=== PATIENT | female | born 1990 | race Caucasian/White ===

== ENCOUNTER 2017-07-30 18:40 | Inpatient (IN) | payer BC ==
[2017-07-30] VITALS (14 sets, daily range): BP systolic 107–129; BP diastolic 55–86; PULSE 78–109; TEMP 97.5–97.6
[~2017-07-30] VITALS: Ht 167.6 cm; Wt 88.6 kg
[2017-07-30] MEDS ORDERED: PRENATAL MVI (19:02)
[2017-07-30 21:19] LABS: BASO # 0.1 (0.0-0.2); BASO % 0.4 % (0.0-2.0); EOS # 0.2 (0.0-0.7); EOS % 0.9 % (0-4.0); GRAN # 14.4 (1.4-6.5); GRAN % 73.5 % (42.2-75.2); HEMATOCRIT 39.5 % (37.0-47.0); HEMOGLOBIN 13.8 g/dl (12.5-16.0); LYMPH # 3.3 (1.2-3.4); MEAN CELL VOLUME 94 fl (80.0-100.0); MEAN CORPUSCULAR HEMOGLOBIN 33 pg (27.0-31.0); MEAN CORPUSCULAR HGB CONC 35 g/dl (33.0-37.0); MEAN PLATELET VOLUME 12.9 fl (7.4-10.4); MONO # 1.4 (0.1-0.6); MONO % 7.1 % (1.7-9.3); PLATELET COUNT 213 K/mm3 (130-400); RED BLOOD COUNT 4.21 M/mm3 (4.10-5.30); REDCELL DISTRIBUTION WIDTH-CV 13.2 % (11.5-14.5)
[2017-07-31] VITALS (28 sets, daily range): BP systolic 104–143; BP diastolic 52–78; PULSE 68–103; TEMP 97.8–98.6
[2017-08-01 07:05] VITALS: BP 113/72; PULSE 94; TEMP 97.6
[2017-08-01] MEDS ORDERED: IBU800 M1 PO (10:18)
[2017-08-01 16:35] VITALS: BP 104/66; PULSE 95; TEMP 98.2
[2017-08-01 19:00] VITALS: BP 114/74; PULSE 100; TEMP 97.6
[2017-08-02 07:30] VITALS: BP 111/59; PULSE 77
[2017-08-02] MEDS ORDERED: PERCOCET 325 MG1 TA2 PO (08:41)
== END 2017-08-02 11:55 | disposition home or self-care (01) | DRG 775 ==
LOC: LDRO 18:40 → OB 18:41 → LDR 18:41 → OB 07-31 08:15
PROVIDERS: Obstetrics & Gynecology
PROC: 10D07Z6 Extraction of Products of Conception, Vacuum, Via Natural or Artificial Opening (ICD-10-PCS; principal; 2017-07-31)
PROC: 0KQM0ZZ Repair Perineum Muscle, Open Approach (ICD-10-PCS; 2017-07-31)
DX: O48.0 Post-term pregnancy (principal); O75.81 Maternal exhaustion complicating labor and delivery; O70.1 Second degree perineal laceration during delivery; Z3A.40 40 weeks gestation of pregnancy; Z37.0 Single live birth
CPT/HCPCS: J2590; J7120

== ENCOUNTER 2021-11-13 23:00 | Inpatient (IN) | payer OTHER ==
[~2021-11-13] VITALS: Ht 167.6 cm; Wt 96.8 kg
[~2021-11-13 23:00] MED LIST: ADVIL200 MG PO; IBU800 M1 PO; MOTRIN 600600 MG/TAB PO; PERCOCET 325 MG1 TA2 PO; PRENATAL MVI; QUASENSE 30 MCG1 TAB PO; VITAMIN C500 MG PO
--- NOTE | 2021-11-13 23:00 | NUR ---
2300 - PATIENT AMBULATORY TO R5 ACCOMPANIED BY SPOUSE, JOE. PATIENT ORIENTED TO ROOM. PATIENT CHANGES INTO GOWN. 2315 - PATIENT STATES HER WATER BROKE AT 2130 AND CONTRACTIONS HAVE BEEN EVERY 6 MINUTES. PATIENT STATES SHE NOTED CLEAR FLUID LEAKING. PATIENT DENIES BLOODY SHOW AND REPORTS GOOD MOVEMENT. PLAN OF CARE REVIEWED. QUESTIONS ANSWERED. 2320 - PATIENT PLACED ON MONITOR. VSS. 232 - SVE PERFORMED. 3. AMNIOTRACE POSITIVE. PLAN OF CARE REVIEWED AND PATIENT AGREEABLE TO PLAN. ORAL HYDRATION PROVIDED.
[2021-11-13] MEDS ORDERED: PRENATAL TABLET PO (23:20)
[2021-11-13] MEDS ORDERED: ZYRTEC 10MG10 MG PO (23:20)
[2021-11-13] MEDS ORDERED: ASPIRIN 81M81 MG/TA2 PO (23:21)
[2021-11-13] MEDS ORDERED: COLACE 100100 MG/CAP PO (23:22)
[2021-11-13 23:30] VITALS: BP 122/97; PULSE 100; TEMP 97.8
--- NOTE | 2021-11-13 23:45 | NUR ---
2345 - PATIENT OFF MONITOR TO AMBULATE IN HALLWAY. CARE ONGOING.
[2021-11-14] VITALS (34 sets, daily range): BP systolic 91–137; BP diastolic 51–86; PULSE 67–112; TEMP 97.3–98.2
--- NOTE | 2021-11-14 | NUR ---
PATIENT OFF MONITOR FOR AMBULATION UNTIL 0035. CARE ONGOING.
[2021-11-14 01:21] LABS: HEMATOCRIT 39.8 % (37.0-47.0); HEMOGLOBIN 14.1 g/dl (12.5-16.0); MEAN CELL VOLUME 92 fl (80.0-100.0); MEAN CORPUSCULAR HEMOGLOBIN 33 pg (27-31); MEAN CORPUSCULAR HGB CONC 35 g/dl (33.0-37.0); MEAN PLATELET VOLUME 12.8 fl (7.4-10.4); PLATELET COUNT 222 K/mm3 (130-400); RED BLOOD COUNT 4.31 M/mm3 (4.10-5.30); REDCELL DISTRIBUTION WIDTH-CV 13.2 % (11.5-14.5)
--- NOTE | 2021-11-14 01:30 | NUR ---
0130 - TOCO TRACING INDESCERNIBLE DUE TO MATERNAL POSITION. TOCO ADJUSTED. CARE ONGOING.
[2021-11-14 01:34] LABS: BAND 11 % (0-10); EOSINOPHIL 2 % (0-4); LYMPHOCYTE 18 % (20.0-51.0); NEUTROPHILS 61 % (42.0-75.2); PLATELET ESTIMATE NORMAL (NORMAL)
--- NOTE | 2021-11-14 02:00 | NUR ---
0200 - PATIENT AMBULATING HALLWAY. CARE ONGOING.
--- NOTE | 2021-11-14 02:30 | NUR ---
PATIENT AMBULATING ON UNIT UNTIL 0230. PATIENT POSITIONED ON BIRTHING BALL UPON RETURN TO ROOM. TOCO TRACING DIFFICULT TO INTERPRET DUE TO MATERNAL POSITION. CARE ONGOING.
--- NOTE | 2021-11-14 03:30 | NUR ---
0330 - PATIENT AMBULATING HALLWAY.
--- NOTE | 2021-11-14 04:00 | NUR ---
0340 - EDOUARD HERNANDEZ AT BEDSIDE. PATIENT POSITIONED SITTING EDGE OF BED. 0350 - TEST DOSE GIVEN BY LITHOGRAPHIC STRIPPER. EFM TRACING POOR DUE TO MATERNAL POSITION FOR PROCEDURE. EFM ADJUSTED. CARE ONGOING.
--- NOTE | 2021-11-14 04:45 | NUR ---
TOCO TRACING DIFFICULT TO INTERPRET. TOCO ADJUSTED. CARE ONGOING.
--- NOTE | 2021-11-14 05:15 | NUR ---
TOCO TRACING INDESCERNIBLE. TOCO ADJUSTED. CARE ONGOING.
--- NOTE | 2021-11-14 05:30 | NUR ---
TOCO TRACING POORLY DUE TO MATERNAL POSITION. TOCO ADJUSTED. CARE ONGOING.
--- NOTE | 2021-11-14 08:40 | NUR ---
0735 SVE by this RN /+1. 0736 Dr. Hopper called with update. 0750 Dr. Hopper in patient's room. Pt starts pushing with contractions. This Rn at bedside coaching patient through pushing. 0820 Dr. Hopper, Carmina and this RN in room for delivery. 0837 Spontaneous vaginal delivery of viable female . Infant bulb suctioned and stimulated. Cord clamped by Dr Hopper and cut by FOB. to mother's chest. Ravinder Hoyt takes over care of . 0840 Spontaneous delivery of placenta. Pitocin bolus started per protocol. 2nd degree perineal laceration repaired by Dr Hopper. Fundal massage done. Firm/midline. Scant amt of bleeding noted. Clean pad placed. Pt repositioned. Plan of care and safety precautions discussed. Pt verbalizes understanding. Call light within place.
[2021-11-15 03:30] VITALS: BP 124/76; PULSE 91; TEMP 97.5
[2021-11-15 07:28] VITALS: BP 115/67; PULSE 75; TEMP 97.4
[2021-11-15] MEDS ORDERED: IBU600 MG PO (09:37)
== END 2021-11-15 11:40 | disposition home or self-care (01) | DRG 807 ==
LOC: LDRO 23:00 → LDR 11-14 00:16 → OB 11-14 16:52
PROVIDERS: Obstetrics & Gynecology; ADMIT Obstetrics & Gynecology
PROC: 0KQM0ZZ Repair Perineum Muscle, Open Approach (ICD-10-PCS; principal; 2021-11-14)
PROC: 10E0XZZ Delivery of Products of Conception, External Approach (ICD-10-PCS; 2021-11-14)
DX: O42.92 Full-term premature rupture of membranes, unspecified as to length of time between rupture and onset of labor (principal); Z37.0 Single live birth; O99.62 Diseases of the digestive system complicating childbirth; K21.9 Gastro-esophageal reflux disease without esophagitis; O70.1 Second degree perineal laceration during delivery; Z3A.40 40 weeks gestation of pregnancy; Z86.16 Personal history of COVID-19; Z23 Encounter for immunization
CPT/HCPCS: J2590; J7120